=== PATIENT | male | born 1995 | race Caucasian/White ===

== ENCOUNTER 2023-03-07 12:59 | Outpatient (RCR) | payer OTHER | END 2023-03-27 | disposition home or self-care (01) | LOC: WSOH | DX: S76.311D Strain of muscle, fascia and tendon of the posterior muscle group at thigh level, right thigh, subsequent encounter (principal); M25.561 Pain in right knee; F84.5 Asperger's syndrome; Y99.0 Civilian activity done for income or pay ==

== ENCOUNTER 2023-03-31 15:06 | Outpatient (RCR) | payer OTHER | END 2023-04-27 | LOC: WSOH | DX: S76.311D Strain of muscle, fascia and tendon of the posterior muscle group at thigh level, right thigh, subsequent encounter (principal); M25.561 Pain in right knee; Y99.0 Civilian activity done for income or pay ==